=== PATIENT | male | born 1975 | race Caucasian/White ===

== ENCOUNTER 2019-11-22 14:26 | Inpatient (IN) | payer MEDICAID ==
[~2019-11-22] VITALS: Ht 180.3 cm; Wt 85.7 kg
[2019-11-22 18:17] LABS: CHLORIDE 101 mEq/L (98-107)
[2019-11-22 18:18] LABS: INR 1.7; PROTHROMBIN TIME 16.9 sec (9.6-11.0)
[2019-11-22 18:19] LABS: BASOPHILS % 0.9 % (0.0-2.0); EOSINOPHILS % 0.1 % (0.0-5.0); LYMPHOCYTES % 7.5 % (20.0-50.0); MEAN CORPUSCULAR HEMOGLOBIN 30.7 pg (28.0-32.0); MEAN CORPUSCULAR VOLUME 94.8 fL (80.0-94.0); MEAN PLATELET VOLUME 8.8 fl (7.4-10.4); MONOCYTES % 6.7 % (2.0-8.0); NEUTROPHILS % 84.8 % (40.0-76.0); PLATELET 160 x1000/uL (130-400); RED BLOOD CELL COUNT 1.59 mill/uL (4.7-6.1); RED CELL DISTRIBUTION WIDTH 24.1 % (11.6-14.6)
[2019-11-22 18:27] LABS: HEMOGLOBIN. 4.9 g/dL (14.0-18.0)
[2019-11-22 18:28] LABS: HEMATOCRIT. 15.1 % (42.0-52.0)
[2019-11-22] MEDS ORDERED: SODIUM CHLORIDE 0.9% 1,000 ML IV ONE (18:45)
[2019-11-22 19:05] LABS: PLATELET ESTIMATE NORMAL
[2019-11-22 19:17] LABS: CLARITY URINE CLOUDY (CLEAR); COLOR URINE ORANGE (YELLOW); KETONES URINE TRACE (NEGATIVE); LEUKOCYTE ESTERASE URINE 1+ (NEGATIVE); NITRITE URINE POSITIVE (NEGATIVE); OCCULT BLOOD URINE NEGATIVE (NEGATIVE); PROTEIN URINE 1+ (NEGATIVE); SPECIFIC GRAVITY URINE 1.025 (1.005-1.030); UROBILINOGEN URINE 0.2 E.U./dL (0.2-1.0)
[2019-11-22] MEDS ORDERED: LEVOFLOXACIN 500MG PREMIX 100 ML IV ONE (20:15)
[2019-11-22] MEDS ORDERED: ACETAMINOPHEN 325MG TABLET PO PRN (22:45)
[2019-11-22] MEDS ORDERED: DIPHENHYDRAMINE 50MG/ML VIAL IV PRN (22:45)
[2019-11-22] MEDS ORDERED: ONDANSETRON HCL 4MG/2ML INJ IV PRN (22:45)
[2019-11-22] MEDS ORDERED: CHLORDIAZEPOXIDE 25MG CAPSULE PO PRN (22:45)
[2019-11-22] MEDS ORDERED: LORAZEPAM 2MG/ML CPJ IV PRN (22:45)
[2019-11-22 23:00] VITALS: BP 115/60
[2019-11-23] VITALS (14 sets, daily range): BP systolic 95–119; BP diastolic 52–80
[2019-11-23] MEDS ORDERED: MVI, ADULT NO.1 10 ML, FOLIC ACID 1 MG, THIAMINE HCL 100 MG in SODIUM CHLORIDE 0.9% 1,0... IV NR ×4 (01:00)
[2019-11-23] MEDS ORDERED: POTASSIUM CHLORIDE 20MEQ TABLET SR PO NR ×2 (06:15)
[2019-11-23] MEDS: SODIUM CHLORIDE 0.9% 1,000 ML IV SCH (08:40)
[2019-11-23] MEDS: FAMOTIDINE 20MG/2ML VIAL IV SCH (08:40)
[2019-11-23 09:59] LABS: BASOPHILS % 0.5 % (0.0-2.0); EOSINOPHILS % 1.2 % (0.0-5.0); LYMPHOCYTES % 9.9 % (20.0-50.0); MEAN CORPUSCULAR HEMOGLOBIN 31.2 pg (28.0-32.0); MEAN CORPUSCULAR VOLUME 92.5 fL (80.0-94.0); MONOCYTES % 8.8 % (2.0-8.0); NEUTROPHILS % 79.6 % (40.0-76.0); PLATELET 104 x1000/uL (130-400); RED BLOOD CELL COUNT 1.76 mill/uL (4.7-6.1); RED CELL DISTRIBUTION WIDTH 19.1 % (11.6-14.6)
[2019-11-23 10:04] LABS: HEMATOCRIT. 16.3 % (42.0-52.0); HEMOGLOBIN. 5.5 g/dL (14.0-18.0)
[2019-11-23 10:06] LABS: CHLORIDE 104 mEq/L (98-107)
[2019-11-23 10:12] LABS: PHOSPHORUS 3.7 mg/dL (2.5-4.9)
[2019-11-23] MEDS: SODIUM CHLORIDE 0.45% 1,000 ML IV SCH ×2 (11:00→17:38)
[2019-11-23 12:30] LABS: CREATINE KINASE 568 IU/L (39-308)
[2019-11-23 17:27] LABS: HEMATOCRIT 18.7 % (42.0-52.0); HEMOGLOBIN 6.1 g/dL (14.0-18.0)
[2019-11-23] MEDS: HYDROCODONE/ACETAMINOPHEN 5/325MG TABLET PO PRN (17:53)
[2019-11-24] VITALS (13 sets, daily range): BP systolic 90–124; BP diastolic 49–66
[2019-11-24] MEDS: SODIUM CHLORIDE 0.45% 1,000 ML IV SCH (00:20)
[2019-11-24] MEDS: HYDROCODONE/ACETAMINOPHEN 5/325MG TABLET PO PRN ×4 (03:13→20:33)
[2019-11-24] MEDS: SODIUM CHLORIDE 0.9% 1,000 ML IV SCH (05:25)
[2019-11-24 06:33] LABS: INR 1.6; PROTHROMBIN TIME 17.3 sec (9.6-11.0)
[2019-11-24 06:34] LABS: BASOPHILS % 0.6 % (0.0-2.0); EOSINOPHILS % 1.7 % (0.0-5.0); LYMPHOCYTES % 13.1 % (20.0-50.0); MEAN CORPUSCULAR HEMOGLOBIN 31.4 pg (28.0-32.0); MEAN CORPUSCULAR VOLUME 90.1 fL (80.0-94.0); MONOCYTES % 14.4 % (2.0-8.0); NEUTROPHILS % 70.2 % (40.0-76.0); PLATELET 92 x1000/uL (130-400); RED BLOOD CELL COUNT 1.95 mill/uL (4.7-6.1); RED CELL DISTRIBUTION WIDTH 19.6 % (11.6-14.6)
[2019-11-24 06:44] LABS: CHLORIDE 103 mEq/L (98-107)
[2019-11-24 07:11] LABS: PHOSPHORUS 3.2 mg/dL (2.5-4.9)
[2019-11-24 08:28] LABS: HEMATOCRIT. 17.6 % (42.0-52.0); HEMOGLOBIN. 6.1 g/dL (14.0-18.0)
[2019-11-24] MEDS: FAMOTIDINE 20MG/2ML VIAL IV SCH (09:43)
[2019-11-24] MEDS ORDERED: MAGNESIUM 4 G PREMIX 100 ML IV NR (11:00)
[2019-11-24] MEDS ORDERED: POTASSIUM CHLORIDE 20MEQ TABLET SR PO SCH (12:00)
[2019-11-24] MEDS ORDERED: POTASSIUM CHLORIDE 20MEQ TABLET SR PO ONE (15:15)
[2019-11-24 17:06] LABS: HEMOGLOBIN. 7.1 g/dL (14.0-18.0); MEAN CORPUSCULAR VOLUME 91.4 fL (80.0-94.0); MEAN PLATELET VOLUME 8.1 fl (7.4-10.4); PLATELET 108 x1000/uL (130-400); RED BLOOD CELL COUNT 2.22 mill/uL (4.7-6.1); RED CELL DISTRIBUTION WIDTH 19.4 % (11.6-14.6)
[2019-11-24 17:11] LABS: HEMATOCRIT. 20.3 % (42.0-52.0)
[2019-11-24 17:40] LABS: PLATELET ESTIMATE DECREASED
[2019-11-25] VITALS (9 sets, daily range): BP systolic 104–131; BP diastolic 56–75
[2019-11-25] MEDS: HYDROCODONE/ACETAMINOPHEN 5/325MG TABLET PO PRN ×3 (00:38→14:37)
[2019-11-25 01:19] LABS: HEMOGLOBIN 6.5 g/dL (14.0-18.0)
[2019-11-25 01:20] LABS: HEMATOCRIT 18.5 % (42.0-52.0)
[2019-11-25 06:38] LABS: INR 1.4
[2019-11-25 06:43] LABS: CHLORIDE 105 mEq/L (98-107)
[2019-11-25 06:44] LABS: MEAN CORPUSCULAR HEMOGLOBIN 31.5 pg (28.0-32.0); MEAN PLATELET VOLUME 7.9 fl (7.4-10.4); PLATELET 101 x1000/uL (130-400); RED BLOOD CELL COUNT 1.99 mill/uL (4.7-6.1); RED CELL DISTRIBUTION WIDTH 19.8 % (11.6-14.6)
[2019-11-25 06:50] LABS: HEMATOCRIT. 18.1 % (42.0-52.0); HEMOGLOBIN. 6.3 g/dL (14.0-18.0)
[2019-11-25 09:44] LABS: PLATELET ESTIMATE SLIGHTLY DECREASED
[2019-11-25] MEDS: FAMOTIDINE 20MG/2ML VIAL IV SCH ×2 (10:12→13:29)
[2019-11-25 14:17] LABS: BASOPHILS % 1.1 % (0.0-2.0); EOSINOPHILS % 1.3 % (0.0-5.0); MEAN CORPUSCULAR HEMOGLOBIN 32.3 pg (28.0-32.0); MEAN CORPUSCULAR VOLUME 90.9 fL (80.0-94.0); MEAN PLATELET VOLUME 7.9 fl (7.4-10.4); MONOCYTES % 14.7 % (2.0-8.0); NEUTROPHILS % 72.9 % (40.0-76.0); PLATELET 112 x1000/uL (130-400); RED BLOOD CELL COUNT 2.16 mill/uL (4.7-6.1); RED CELL DISTRIBUTION WIDTH 18.5 % (11.6-14.6)
[2019-11-25 14:27] LABS: HEMATOCRIT. 19.7 % (42.0-52.0)
[2019-11-25 19:05] LABS: MEAN CORPUSCULAR HEMOGLOBIN 30.7 pg (28.0-32.0); MEAN CORPUSCULAR VOLUME 90.9 fL (80.0-94.0); PLATELET 111 x1000/uL (130-400); RED BLOOD CELL COUNT 2.26 mill/uL (4.7-6.1); RED CELL DISTRIBUTION WIDTH 18.7 % (11.6-14.6)
[2019-11-25 19:21] LABS: HEMATOCRIT 20.6 % (42.0-52.0)
[2019-11-25] MEDS: HYDROCODONE/ACETAMINOPHEN 10/325MG TABLET PO PRN (20:38)
[2019-11-26] VITALS (9 sets, daily range): BP systolic 105–130; BP diastolic 57–76
[2019-11-26] MEDS: HYDROCODONE/ACETAMINOPHEN 10/325MG TABLET PO PRN ×3 (05:17→23:28)
[2019-11-26] MEDS: SODIUM CHLORIDE 0.45% 1,000 ML IV SCH (05:18)
[2019-11-26 07:01] LABS: HEMATOCRIT 23.3 % (42.0-52.0); HEMOGLOBIN 8.1 g/dL (14.0-18.0); MEAN CORPUSCULAR HEMOGLOBIN 31.4 pg (28.0-32.0); MEAN CORPUSCULAR VOLUME 90.5 fL (80.0-94.0); PLATELET 132 x1000/uL (130-400); RED BLOOD CELL COUNT 2.57 mill/uL (4.7-6.1); RED CELL DISTRIBUTION WIDTH 19.3 % (11.6-14.6)
[2019-11-26] MEDS: FAMOTIDINE 20MG/2ML VIAL IV SCH (09:00)
[2019-11-27] VITALS (8 sets, daily range): BP systolic 105–141; BP diastolic 66–79
[2019-11-27] MEDS: HYDROCODONE/ACETAMINOPHEN 10/325MG TABLET PO PRN ×3 (05:45→21:02)
[2019-11-27 06:52] LABS: HEMOGLOBIN. 7.3 g/dL (14.0-18.0); MEAN CORPUSCULAR HEMOGLOBIN 31.8 pg (28.0-32.0); MEAN CORPUSCULAR VOLUME 90.1 fL (80.0-94.0); MEAN PLATELET VOLUME 7.9 fl (7.4-10.4); PLATELET 150 x1000/uL (130-400); RED BLOOD CELL COUNT 2.28 mill/uL (4.7-6.1); RED CELL DISTRIBUTION WIDTH 20.7 % (11.6-14.6)
[2019-11-27 07:41] LABS: CHLORIDE 101 mEq/L (98-107)
[2019-11-27 08:17] LABS: HEMATOCRIT. 20.6 % (42.0-52.0)
[2019-11-27] MEDS ORDERED: IOHEXOL-350 100 ML BOTTLE ONE (09:22)
[2019-11-27] MEDS: FAMOTIDINE 20MG/2ML VIAL IV SCH (09:23)
[2019-11-27] MEDS: SODIUM CHLORIDE 0.45% 1,000 ML IV SCH (09:24)
[2019-11-27] MEDS ORDERED: MORPHINE SULFATE 2 MG/ML CPJ (NOT FOR IM USE) IV SCH (12:45)
[2019-11-27 16:08] LABS: HEMATOCRIT 21.6 % (42.0-52.0); HEMOGLOBIN 7.4 g/dL (14.0-18.0)
[2019-11-27 19:48] LABS: MEAN CORPUSCULAR HEMOGLOBIN 32.1 pg (28.0-32.0); MEAN CORPUSCULAR VOLUME 92.2 fL (80.0-94.0); PLATELET 164 x1000/uL (130-400); RED BLOOD CELL COUNT 2.17 mill/uL (4.7-6.1); RED CELL DISTRIBUTION WIDTH 21.6 % (11.6-14.6)
[2019-11-28] VITALS (13 sets, daily range): BP systolic 124–142; BP diastolic 66–87
[2019-11-28] MEDS: HYDROCODONE/ACETAMINOPHEN 10/325MG TABLET PO PRN ×4 (02:15→21:05)
[2019-11-28 02:25] LABS: HEMATOCRIT 21.1 % (42.0-52.0); HEMOGLOBIN 7.1 g/dL (14.0-18.0)
[2019-11-28 06:11] LABS: MEAN CORPUSCULAR HEMOGLOBIN 30.7 pg (28.0-32.0); MEAN CORPUSCULAR VOLUME 90.4 fL (80.0-94.0); MEAN PLATELET VOLUME 7.9 fl (7.4-10.4); PLATELET 152 x1000/uL (130-400); RED BLOOD CELL COUNT 2.27 mill/uL (4.7-6.1); RED CELL DISTRIBUTION WIDTH 20.8 % (11.6-14.6)
[2019-11-28 06:34] LABS: CHLORIDE 102 mEq/L (98-107)
[2019-11-28 07:35] LABS: HEMATOCRIT. 20.5 % (42.0-52.0)
[2019-11-28] MEDS: FAMOTIDINE 20MG/2ML VIAL IV SCH (08:42)
[2019-11-28 14:25] LABS: PLATELET ESTIMATE NORMAL
[2019-11-28] MEDS ORDERED: PANTOPRAZOLE SODIUM 40 MG/VIAL IV SCH (15:00)
[2019-11-28] MEDS: SODIUM CHLORIDE 0.9% 1,000 ML IV SCH (15:02)
[2019-11-28 15:52] LABS: INR 1.4; PROTHROMBIN TIME 15.1 sec (9.6-11.0)
[2019-11-28 15:53] LABS: HEMATOCRIT 23.7 % (42.0-52.0)
[2019-11-28 17:22] LABS: PLATELET ESTIMATE NORMAL
[2019-11-29] VITALS: BP 143/81
[2019-11-29 04:00] VITALS: BP 140/80
[2019-11-29] MEDS: HYDROCODONE/ACETAMINOPHEN 10/325MG TABLET PO PRN ×3 (04:33→17:24)
[2019-11-29] MEDS: SODIUM CHLORIDE 0.9% 1,000 ML IV SCH ×3 (04:36→20:49)
[2019-11-29] MEDS: PANTOPRAZOLE SODIUM 40 MG/VIAL IV SCH ×2 (06:22→18:02)
[2019-11-29] MEDS ORDERED: PHYTONADIONE 10MG/ML AMP SUBCUT NR (11:15)
[2019-11-29 12:00] VITALS: BP 139/85
[2019-11-29 12:42] LABS: INR 1.4
[2019-11-29 12:52] LABS: HEMATOCRIT 23.5 % (42.0-52.0); HEMOGLOBIN 7.9 g/dL (14.0-18.0); MEAN CORPUSCULAR HEMOGLOBIN 31.1 pg (28.0-32.0); PLATELET 180 x1000/uL (130-400); RED BLOOD CELL COUNT 2.56 mill/uL (4.7-6.1); RED CELL DISTRIBUTION WIDTH 21.8 % (11.6-14.6)
[2019-11-29 13:27] LABS: CHLORIDE 104 mEq/L (98-107)
[2019-11-29 16:00] VITALS: BP 142/82
[2019-11-29 18:40] LABS: INR 1.4
[2019-11-29 20:00] VITALS: BP 121/67
[2019-11-30] VITALS (10 sets, daily range): BP systolic 124–157; BP diastolic 70–86
[2019-11-30] MEDS: HYDROCODONE/ACETAMINOPHEN 10/325MG TABLET PO PRN ×3 (00:08→13:03)
[2019-11-30 03:12] LABS: HEMATOCRIT 21.4 % (42.0-52.0); HEMOGLOBIN 7.2 g/dL (14.0-18.0); MEAN CORPUSCULAR HEMOGLOBIN 30.7 pg (28.0-32.0); MEAN CORPUSCULAR VOLUME 91.4 fL (80.0-94.0); PLATELET 176 x1000/uL (130-400); RED BLOOD CELL COUNT 2.34 mill/uL (4.7-6.1); RED CELL DISTRIBUTION WIDTH 22.1 % (11.6-14.6)
[2019-11-30 03:24] LABS: INR 1.4; PARTIAL THROMBOPLASTIN TIME 34.5 sec (23.4-31.0); PROTHROMBIN TIME 14.7 sec (9.6-11.0)
[2019-11-30 03:44] LABS: CHLORIDE 104 mEq/L (98-107)
[2019-11-30] MEDS: PANTOPRAZOLE SODIUM 40 MG/VIAL IV SCH ×2 (06:00→17:47)
[2019-11-30] MEDS ORDERED: PHYTONADIONE 10MG/ML AMP SUBCUT NR (08:49)
[2019-11-30] MEDS ORDERED: HYDROCODONE/ACETAMINOPHEN 10/325MG TABLET PO PRN (20:05)
[2019-11-30 22:00] LABS: HEMATOCRIT 24.9 % (42.0-52.0); HEMOGLOBIN 8.5 g/dL (14.0-18.0)
[2019-11-30 22:15] LABS: INR 1.4; PROTHROMBIN TIME 14.7 sec (9.6-11.0)
[2019-12-01] VITALS: BP 145/86
[2019-12-01] MEDS: HYDROCODONE/ACETAMINOPHEN 10/325MG TABLET PO PRN ×4 (02:14→22:20)
[2019-12-01 04:00] VITALS: BP 158/92
[2019-12-01] MEDS: PANTOPRAZOLE SODIUM 40 MG/VIAL IV SCH ×2 (06:00→17:15)
[2019-12-01 06:37] LABS: INR 1.3; PARTIAL THROMBOPLASTIN TIME 34.1 sec (23.4-31.0); PROTHROMBIN TIME 14.1 sec (9.6-11.0)
[2019-12-01 06:46] LABS: HEMATOCRIT 24.3 % (42.0-52.0); HEMOGLOBIN 8.1 g/dL (14.0-18.0); MEAN CORPUSCULAR HEMOGLOBIN 30.9 pg (28.0-32.0); MEAN CORPUSCULAR VOLUME 92.6 fL (80.0-94.0); PLATELET 197 x1000/uL (130-400); RED BLOOD CELL COUNT 2.63 mill/uL (4.7-6.1); RED CELL DISTRIBUTION WIDTH 22.7 % (11.6-14.6)
[2019-12-01 07:52] LABS: CHLORIDE 104 mEq/L (98-107)
[2019-12-01 08:00] VITALS: BP_SYST 126; BP_DIAS 79; BP_DIAS 96
[2019-12-01] MEDS ORDERED: PHYTONADIONE 10MG/ML AMP SUBCUT NR (08:00)
[2019-12-01] MEDS: SODIUM CHLORIDE 0.9% 1,000 ML IV SCH ×2 (08:45→22:22)
[2019-12-01 12:00] VITALS: BP 121/78
[2019-12-01] MEDS ORDERED: MIDAZOLAM HCL 5 MG/5 ML VIAL ONE (13:14)
[2019-12-01] MEDS ORDERED: FENTANYL CITRATE/PF 50MCG/ML 2ML VIAL ONE (13:14)
[2019-12-01] MEDS ORDERED: FENTANYL CITRATE/PF 50MCG/ML 2ML VIAL IV PRN (13:20)
[2019-12-01] MEDS ORDERED: MIDAZOLAM HCL 5 MG/5 ML VIAL IV PRN (13:21)
[2019-12-01] MEDS ORDERED: DIAZEPAM 5 MG/ML 2ML CPJ ONE (13:23)
[2019-12-01] MEDS ORDERED: DIAZEPAM 5 MG/ML 2ML CPJ IV PRN (13:23)
[2019-12-01] MEDS ORDERED: BACTERIOSTATIC SODIUM CHLORIDE 0.9% 30ML VIAL IJ ONE (14:12)
[2019-12-01 16:00] VITALS: BP 132/80
[2019-12-01 20:00] VITALS: BP 122/67
[2019-12-02] VITALS: BP 128/74
[2019-12-02 04:00] VITALS: BP 139/83
[2019-12-02] MEDS: HYDROCODONE/ACETAMINOPHEN 10/325MG TABLET PO PRN ×2 (04:40→10:49)
[2019-12-02 05:27] VITALS: BP 130/83
[2019-12-02] MEDS: PANTOPRAZOLE SODIUM 40 MG/VIAL IV SCH (06:00)
[2019-12-02 08:00] VITALS: BP 136/85
[2019-12-02 11:35] LABS: EOSINOPHILS % 2.2 % (0.0-5.0); HEMATOCRIT. 25.7 % (42.0-52.0); HEMOGLOBIN. 8.7 g/dL (14.0-18.0); LYMPHOCYTES % 8.2 % (20.0-50.0); MEAN CORPUSCULAR HEMOGLOBIN 31.9 pg (28.0-32.0); MEAN CORPUSCULAR VOLUME 93.6 fL (80.0-94.0); MEAN PLATELET VOLUME 7.9 fl (7.4-10.4); MONOCYTES % 8.2 % (2.0-8.0); NEUTROPHILS % 78.4 % (40.0-76.0); PLATELET 211 x1000/uL (130-400); RED BLOOD CELL COUNT 2.74 mill/uL (4.7-6.1); RED CELL DISTRIBUTION WIDTH 23.6 % (11.6-14.6)
[2019-12-02 12:00] VITALS: BP 128/74
[2019-12-02] MEDS ORDERED: PROPRANOLOL HCL 20MG TABLET PO SCH (12:00)
[2019-12-02] MEDS ORDERED: PROPRANOLOL HCL 10MG TABLET PO SCH (12:00)
[2019-12-02] MEDS: SODIUM CHLORIDE 0.9% 1,000 ML IV SCH (12:20)
[2019-12-02] MEDS ORDERED: PROP20TA7 MT (12:47)
[2019-12-02] MEDS ORDERED: PROT40 PO (12:47)
[2019-12-02] MEDS ORDERED: HYDR-3280 MT (13:57)
[2019-12-02 14:19] LABS: PLATELET ESTIMATE NORMAL
[2019-12-02 14:26] VITALS: BP 120/74
[2019-12-05] MEDS ORDERED: HYDR-3281 MT (11:35)
== END 2019-12-02 15:25 | disposition home or self-care (01) | DRG 469 ==
LOC: ER 14:26 → 6EST 20:02 → EDBEDREQ 20:04 → ENRESERV 21:03 → 6EST 23:42
PROVIDERS: ADMIT Internal Medicine; ATTEND Internal Medicine
PROC: 30233N1 Transfusion of Nonautologous Red Blood Cells into Peripheral Vein, Percutaneous Approach (ICD-10-PCS; principal; 2019-11-22)
PROC: 30233K1 Transfusion of Nonautologous Frozen Plasma into Peripheral Vein, Percutaneous Approach (ICD-10-PCS; 2019-11-24)
PROC: 0DB78ZX Excision of Stomach, Pylorus, Via Natural or Artificial Opening Endoscopic, Diagnostic (ICD-10-PCS; 2019-12-01)
DX: N17.9 Acute kidney failure, unspecified (principal); K76.7 Hepatorenal syndrome; E43 Unspecified severe protein-calorie malnutrition; D68.9 Coagulation defect, unspecified; D69.59 Other secondary thrombocytopenia; E11.22 Type 2 diabetes mellitus with diabetic chronic kidney disease; K29.71 Gastritis, unspecified, with bleeding; E83.42 Hypomagnesemia; S70.11XA Contusion of right thigh, initial encounter; R65.10 Systemic inflammatory response syndrome (SIRS) of non-infectious origin without acute organ dysfunction; E87.6 Hypokalemia; I12.9 Hypertensive chronic kidney disease with stage 1 through stage 4 chronic kidney disease, or unspecified chronic kidney disease; N18.9 Chronic kidney disease, unspecified; K76.0 Fatty (change of) liver, not elsewhere classified; D63.1 Anemia in chronic kidney disease; K70.30 Alcoholic cirrhosis of liver without ascites; F10.20 Alcohol dependence, uncomplicated; I85.00 Esophageal varices without bleeding; K31.89 Other diseases of stomach and duodenum; E87.1 Hypo-osmolality and hyponatremia; X58.XXXA Exposure to other specified factors, initial encounter; Z68.26 Body mass index [BMI] 26.0-26.9, adult; Z88.0 Allergy status to penicillin; Z79.899 Other long term (current) drug therapy; Y93.89 Activity, other specified; Y92.89 Other specified places as the place of occurrence of the external cause; Y99.8 Other external cause status
CPT/HCPCS: 36415; 72191; 73521; 73706; 76705; 76770; 76881; 80048; 80053; 80076; 81003; 82248; 82270; 82533; 82550; 83735; 83930; 84100; 84443; 85014; 85018; 85025; 85027; 85049; 85384; 86850; 86900; 86920; 86927; 88305; 88312; 88313; 93005; 93970; 99285; C9113; J1956; J2060; J2250; J3010; J3411; J3430; J3475; J3490; J7030; P9016; P9017; P9021; Q9967